=== PATIENT | female | born 1985 | race Caucasian/White ===

== ENCOUNTER 2024-08-27 09:02 | Emergency (ER) | payer OTHER ==
[~2024-08-27] VITALS: Ht 160 cm; Wt 100.0 kg
[2024-08-27 09:09] VITALS: BP 142/83; PULSE 96; RESP 18; TEMP 98.2; O2SAT 99
[2024-08-27] MEDS: LORazepam 2 MG/ML VIAL IVP ONE (11:49)
[2024-08-27] MEDS: MECLIZINE HCL 25 MG TABLET PO ONE (11:49)
[2024-08-27] MEDS: SODIUM CHLORIDE 0.9% 1,000 ML IV ONE (11:49)
[2024-08-27] MEDS: KETOROLAC TROMETHAMINE 30 MG/ML VIAL IVP ONE (11:49)
[2024-08-27] MEDS: ONDANSETRON HCL 4 MG/2 ML VIAL IVP ONE (11:49)
[2024-08-27 12:07] LABS: BASOPHILS % (AUTO) 0.7 % (0.0-2.0); EOSINOPHILS % (AUTO) 0.6 % (1.0-6.0); HEMATOCRIT 40.5 % (36-46); HEMOGLOBIN 12.6 g/dL (12.0-16.0); LYMPHOCYTES # (AUTO) 2.2 K/uL (1.0-4.8); LYMPHOCYTES % (AUTO) 16.4 % (22.0-44.0); MEAN CORPUSCULAR HEMOGLOBIN 24.2 pg (26.0-34.0); MEAN CORPUSCULAR HGB CONC 31.2 G/dL (31.0-37.0); MEAN CORPUSCULAR VOLUME 78 fL (80-100); MONOCYTES # (AUTO) 0.4 K/uL (0.1-1.0); MONOCYTES % (AUTO) 3.2 % (2.0-9.0); NEUTROPHILS # (AUTO) 10.7 K/uL (1.8-7.7); NEUTROPHILS % (AUTO) 79.1 % (40.0-70.0); PLATELET COUNT (AUTO) 328 K/uL (150-450); RED BLOOD CELL COUNT(AUTO) 5.22 MIL/uL (4.00-5.20); RED CELL DISTRIBUTION WIDTH 16.9 % (11.5-14.5); WHITE BLOOD COUNT (AUTO) 13.5 K/uL (4.5-11.0)
[2024-08-27 12:20] LABS: ANION GAP 11 mmol/L (8-16); CALCIUM, TOTAL 8.5 mg/dL (8.8-10.5); CARBON DIOXIDE 24 mmol/L (22-29); CHLORIDE 105 mmol/L (98-107); CREATININE 0.86 mg/dL (0.60-1.30); GLOMERULAR FILTR. RATE CALC > 60 mL/min (>60); GLUCOSE,RANDOM 105 mg/dL (70-110); POTASSIUM 4.2 mmol/L (3.5-5.1); SODIUM SERUM 140 mmol/L (136-145); UREA NITROGEN, BLOOD 9 mg/dL (7-18)
[2024-08-27] MEDS ORDERED: ONDA-104 PO (13:28)
[2024-08-27] MEDS ORDERED: ACET-66 PO (13:28)
[2024-08-27] MEDS ORDERED: MECL-134 PO (13:28)
[2024-08-27] MEDS ORDERED: LORA1TAB25 PO (13:28)
== END 2024-08-27 13:49 | disposition home or self-care (01) ==
LOC: EMS 09:05
DX: R42 Dizziness and giddiness (principal); Z90.49 Acquired absence of other specified parts of digestive tract
CPT/HCPCS: 99284; 96374; 96375; 96361; 80048; 84703; 85025; 36415; 93005; J1885; J2060; J2405; J7030